=== PATIENT | female | born 1970 | race Caucasian/White ===

== ENCOUNTER 2017-07-26 09:09 | Outpatient (CLI) | payer BC ==
[2017-07-26 09:59] LABS: eGFR (African) > 60; eGFR (Non-African) > 60
== END 2017-07-26 09:10 ==
LOC: LAB 09:09
PROVIDERS: ATTEND Family Medicine
DX: Z00.00 Encounter for general adult medical examination without abnormal findings (principal); E03.9 Hypothyroidism, unspecified
CPT/HCPCS: 36415; 80053; 80061; 84443

== ENCOUNTER 2017-09-13 09:29 | Outpatient (CLI) | payer BC ==
[2017-09-13 09:48] LABS: APPEARANCE,URINE Clear (CLEAR); COLOR,URINE Yellow (YELLOW); OCCULT BLOOD,URINE Negative (NEGATIVE)
== END 2017-09-13 11:20 ==
LOC: LAB 09:29
PROVIDERS: ATTEND Family Medicine
DX: R30.0 Dysuria (principal)
CPT/HCPCS: 81002; 87086

== ENCOUNTER 2019-07-31 09:25 | Outpatient (CLI) | payer BC ==
[2019-08-12 12:38] LABS: BASOPHILS % 0.3 % (0.0-1.5); NEUTROPHILS # 2.8 # k/uL (1.4-7.7)
[2019-08-12 12:39] LABS: HDL 50 mg/dL (>40); eGFR (Non-African) > 60
== END 2019-07-31 09:35 ==
LOC: LAB 09:25
PROVIDERS: ATTEND Family Medicine
DX: Z13.220 Encounter for screening for lipoid disorders (principal); Z13.0 Encounter for screening for diseases of the blood and blood-forming organs and certain disorders involving the immune mechanism; Z13.29 Encounter for screening for other suspected endocrine disorder
CPT/HCPCS: 36415; 80053; 80061; 84443; 85025